=== PATIENT | female | born 1950 | race Two or more races ===

== ENCOUNTER 2021-04-12 17:02 | Observation (INO) | payer MEDICARE ==
[~2021-04-12] VITALS: Ht 180.3 cm; Wt 149.5 kg
[2021-04-12] MEDS ORDERED: fentaNYL PF VIAL 100 MCG/2 ML VIAL IVP ONE (17:15)
--- NOTE | 2021-04-12 17:33 | PHYS DOC ---
General Adult EDM: Chief Complaint: BACK PAIN OR INJURY HPI: HPI: Patient is a 71 year old female who presents with was on the toilet having a bowel movement when she decided she needed to pull up her sock but the toilet seat is wobbly and loose and as she went to slouched over to the side to grab her sock she fell forward landing on her face then off to the side. States that she got a little dizzy when she bent over to grab the sock. She states that she had not been bearing down. She is mainly complaining of mid lower back pain that is a stabbing type sensation. She rates her pain an 6 out of 10. She was given fentanyl by EMS. There is no LOC. Patient hurts more so with movement. She states that she had a hard time trying to get up off the floor. Review of Systems: Review of Systems: Constitutional: Denies fever or chills. [] Eyes: Denies change in visual acuity. [] HENT: Denies nasal congestion or sore throat. [] Respiratory: Denies cough or shortness of breath. [] Cardiovascular: Denies chest pain or edema. [] GI: Denies abdominal pain, nausea, vomiting, bloody stools or diarrhea. [] : Denies dysuria. [] Musculoskeletal: + back pain or denies joint pain. [] Integument: Denies rash. [] Neurologic: Denies headache, focal weakness or sensory changes. + Dizziness [] Endocrine: Denies polyuria or polydipsia. [] Lymphatic: Denies swollen glands. [] Psychiatric: Denies depression or anxiety. [] Heart Score: C/O Chest Pain: No HEART Score for Chest Pain: HEART Score for Chest Pain Response (Comments) Value History Slighlty/Non-Suspicious 0 ECG Nonspecific Repolarizatio 1 Age > 65 2 Risk Factors 1 or 2 Risk Factors 1 Troponin < Normal Limit 0 Total 4 Risk Factors: Risk Factors: DM, Current or recent (<one month) smoker, HTN, HLP, family hist ory of CAD, obesity. Risk Scores: Score 0 - 3: 2.5% MACE over next 6 weeks - Discharge Home Score 4 - 6: 20.3% MACE over next 6 weeks - Admit for Clinical Observation Score 7 - 10: 72.7% MACE over next 6 weeks - Early Invasive Strategies Current Medications: Current Medications Medications (Trade) Dose Ordered Sig/Leonidas Start Time Stop Time Status Last Admin Dose Admin Fentanyl Citrate (Fentanyl 2ml Vial) 50 mcg 1X ONCE 04/12/21 17:15 04/12/21 17:16 UNV Physical Exam: PE: Constitutional: Well developed, well nourished, no acute distress, non-toxic appearance. [] HENT: Normocephalic, atraumatic, bilateral external ears normal, oropharynx moist, no oral exudates, nose normal. [] Eyes: PERRLA, EOMI, conjunctiva normal, no discharge. [] Neck: Normal range of motion, no tenderness, supple, no stridor. [] Cardiovascular:Heart rate regular rhythm, no murmur [] Lungs & Thorax: Bilateral breath sounds clear to auscultation [] Abdomen: Bowel sounds normal, soft, no tenderness, no masses, no pulsatile masses. [] Skin: Warm, dry, no erythema, no rash. [] Back: Mid to lower tenderness, no CVA tenderness. [] Extremities: No tenderness, no cyanosis, no clubbing, ROM intact, no edema. [] Neurologic: Alert and oriented X 3, normal motor function, normal sensory function, no focal deficits noted. [] Psychologic: Affect normal, judgement normal, mood normal. [] EKG: EK and read by Dr. Heredia as irregular rhythm, increased QTC and QT but no STEMI with some PVCs Radiology/Procedures: Radiology/Procedures: [] Impression: [facility] [address] [place], [place] [id number] IMAGING REPORT Signed PATIENT: EVER JULIEN ACCOUNT: [id number] : 1950 LOCATION: ER AGE: 71 SEX: F EXAM STATUS: PRE ER ORD. PHYSICIAN: PRADIP MAYEN APRN REASON: dizziness, fall/ birthdate is 1950 PROCEDURE: PORTABLE CHEST 1V EXAM: AP View of the chest DATE: 04/12/2021 5:04 PM INDICATION: Reason: dizziness, fall COMPARISON: No Prior FINDINGS: The heart is not enlarged. Mediastinal and hilar contours are normal. Minimal patchy opacities left lung base likely atelectasis. No pleural effusion or pneumothorax. IMPRESSION: Minimal patchy opacities left lung base likely atelectasis. Early/developing consolidation is not entirely excluded. Electronically signed by: Nazario Ho MD (04/12/2021 5:29 PM) [facility] DICTATED and SIGNED BY: NAZARIO HO MD DATE: 04/12/21 [id number] [facility] [address] [place] [address] IMAGING REPORT Signed PATIENT: EVER JULIEN ACCOUNT: [id number] : 1950 LOCATION: ER AGE: 71 SEX: F EXAM STATUS: REG ER ORD. PHYSICIAN: PRADIP MAYEN APRN REASON: dizziness, fall [phone] PROCEDURE: CT MAXILLOFACIAL WO CONTRAST CT HEAD AND C-SPINE WO, CT MAXILLOFACIAL WITHOUT CONTRAST, CT LUMBAR SPINE WO dated 04/12/2021 5:23 PM. Comparison: None. Clinical Indication: Pain after fall. Technical factors: Contiguous 5 mm axial images of the head were obtained from the skullbase to the vertex. No contrast was administered. In addition, 3 mm axial images of the cervical spine, lumbar spine and maxillofacial bones were acquired with thin cut coronal and sagittal reconstructions. One or more of the following individualized dose reduction techniques were utilized for this examination: 1. Automated exposure control 2. Adjustment of the mA and/or kV according to patient size 3. Use of iterative reconstruction technique Findings head: Ventricles and sulci are within normal limits for age. No midline shift or mass effect. Brain parenchyma is of normal attenuation. No hemorrhage or extra-axial collection. Posterior fossa and brainstem unremarkable. Visualized paranasal sinuses and mastoid air cells are clear. No apparent calvarial abnormality. IMPRESSION HEAD: 1. No evidence of acute intracranial abnormality. Findings cervical spine: Images were acquired from the skull base to T2. Sagittal alignment is anatomic. Vertebral body heights are maintained. No prevertebral soft tissue swelling. Posterior elements are intact. Moderate endplate hypertrophic changes throughout. There is moderate multilevel disc space narrowing and uncovertebral spurring. Moderate multilevel facet arthropathy. There is resultant mild to moderate central canal stenosis at C3-C4, C4-C5, C5-C6 and C6-C7. Moderate to severe multilevel foraminal narrowing. No significant soft tissue abnormality. There are atherosclerotic disease of the carotid arteries. IMPRESSION CERVICAL SPINE: 1. No evidence of fracture or malalignment. 2. Moderate to severe multilevel spondylosis. Findings maxillofacial: No evidence of displaced facial fracture. The orbital dowling and maxillary dowling are intact. Zygomatic arches are intact. No nasal bone fracture. Mandible is intact. Mild mucosal thickening of the ethmoid air cells. The maxillary sinuses. Frontal and sphenoid sinuses are clear. Mastoid air cells are clear. No significant soft tissue abnormality. IMPRESSION MAXILLOFACIAL: 1. No evidence of displaced facial fracture. 2. Mild sinus disease. Findings lumbar spine: Grade 1 anterolisthesis of L4 on L5. Sagittal alignment is otherwise anatomic. Vertebral body heights are maintained. There is moderate disc space narrowing at L4-L5 and severe disc space narrowing of the S1. Posterior elements are intact. No evidence of fracture. Mild to moderate endplate hypertrophic changes throughout with moderate arthrosis lower lumbar apophyseal joints. Resultant moderate right foraminal stenosis at L3-L4 with moderate bilateral foraminal stenosis at L4-L5 and L5-S1. No apparent focal disc herniation. There is moderate central stenosis at L3-L4 and L4-L5 and mild central canal narrowing at L2-L3 and L5-S1. Images of the retroperitoneum show atrophic changes of the right kidney. IMPRESSION LUMBAR SPINE: 1. No evidence of fracture or malalignment. 2. Moderate lower lumbar spondylosis. Electronically signed by: Shorty Martinez MD (04/12/2021 7:05 PM) [facility] DICTATED and SIGNED BY: SHORTY MARTINEZ MD DATE: 04/12/21 [id number] Course & Med Decision Making: Course & Med Decision Making Pertinent Labs and Imaging studies reviewed. (See chart for details) Alert and oriented x4. Moving all extremities. No loss of bowel and bladder. Alert and oriented x4. Speaks in full clear sentences. No nystagmus. No facial or skull trauma. No swelling to the face. No broken teeth and she did not bite her tongue. No lacerations or abrasions. Morbidly obese. Lumbar focal bony tenderness. Painful when moving in the bed. She is moving all 4 extremities equally. Sensations intact. Neurologically intact. Skin pink warm and dry. Troponin is elevated and I have spoken to Dr Celeste states to just trend the enzymes. He states there is no need to start heparin. I did get the patient a 325 mg aspirin. I have spoken to Dr. Mcleod for admission. Chris Disclaimer: Chris Disclaimer: This electronic medical record was generated, in whole or in part, using a voice recognition dictation system. Departure Departure Impression: Primary Impression: NSTEMI (non-ST elevated myocardial infarction) Disposition: ADMITTED INPATIENT Admitting Physician: GIO Condition: STABLE PRADIP MAYEN VICE CHANCELLOR Apr 12, 2021 17:33
[2021-04-12 18:11] LABS: BASO # 0.1 x10^3/uL (0.0-0.2); BASO % 1 % (0-3); EOS # 0.2 x10^3/uL (0.0-0.7); EOS % 3 % (0-3); HEMATOCRIT 30.9 % (36.0-47.0); HEMOGLOBIN 9.9 g/dL (12.0-15.5); LYMPH # 1.9 x10^3/uL (1.0-4.8); LYMPH % 33 % (24-48); MEAN CORPUSCULAR HEMOGLOBIN 26 pg (25-35); MEAN CORPUSCULAR HGB CONC 32 g/dL (31-37); MEAN CORPUSCULAR VOLUME 82 fL (79-100); MONO # 0.4 x10^3/uL (0.0-1.1); MONO % 6 % (0-9); NEUT # 3.4 x10^3/uL (1.8-7.7); NEUT % 57 % (31-73); PLATELET COUNT 393 x10^3/uL (140-400); RED BLOOD COUNT 3.79 x10^6/uL (3.50-5.40); RED CELL DISTRIBUTION WIDTH 17.7 % (11.5-14.5); WHITE BLOOD COUNT 5.9 x10^3/uL (4.0-11.0)
[2021-04-12 18:27] LABS: CALCIUM 7.7 mg/dL (8.5-10.1); CREATININE 1.1 mg/dL (0.6-1.0); GFR 49.1; POTASSIUM 4.7 mmol/L (3.5-5.1)
[2021-04-12 18:33] LABS: ALBUMIN 2.6 g/dL (3.4-5.0); ALBUMIN/GLOBULIN RATIO 0.5 (1.0-1.7); MAGNESIUM 2.1 mg/dL (1.8-2.4); TOTAL BILIRUBIN 0.2 mg/dL (0.2-1.0); TOTAL PROTEIN 7.7 g/dL (6.4-8.2)
--- NOTE | 2021-04-12 19:07 | RAD ---
CT HEAD AND C-SPINE WO, CT MAXILLOFACIAL WITHOUT CONTRAST, CT LUMBAR SPINE WO dated 04/12/2021 5:23 P M. Comparison: None. Clinical Indication: Pain after fall. Technical factors: Contiguous 5 mm axial images of the head were obtained from the skullbase to the v ertex. No contrast was administered. In addition, 3 mm axial images of the cervical spine, lumbar spi ne and maxillofacial bones were acquired with thin cut coronal and sagittal reconstructions. One or more of the following individualized dose reduction techniques were utilized for this examinat ion: 1. Automated exposure control 2. Adjustment of the mA and/or kV according to patient size 3. Use of iterative reconstruction technique Findings head: Ventricles and sulci are within normal limits for age. No midline shift or mass effect. Brain parench yma is of normal attenuation. No hemorrhage or extra-axial collection. Posterior fossa and brainstem unremarkable. Visualized paranasal sinuses and mastoid air cells are clear. No apparent calvarial abnormality. IMPRESSION HEAD: 1. No evidence of acute intracranial abnormality. Findings cervical spine: Images were acquired from the skull base to T2. Sagittal alignment is anatomic. Vertebral body height s are maintained. No prevertebral soft tissue swelling. Posterior elements are intact. Moderate endpl ate hypertrophic changes throughout. There is moderate multilevel disc space narrowing and uncoverteb ral spurring. Moderate multilevel facet arthropathy. There is resultant mild to moderate central belkys l stenosis at C3-C4, C4-C5, C5-C6 and C6-C7. Moderate to severe multilevel foraminal narrowing. No si gnificant soft tissue abnormality. There are atherosclerotic disease of the carotid arteries. IMPRESSION CERVICAL SPINE: 1. No evidence of fracture or malalignment. 2. Moderate to severe multilevel spondylosis. Findings maxillofacial: No evidence of displaced facial fracture. The orbital dowling and maxillary dowling are intact. Zygomatic arches are intact. No nasal bone fracture. Mandible is intact. Mild mucosal thickening of the ethmoid air cells. The maxillary sinuses. Frontal and sphenoid sinuses are clear. Mastoid air cells are clear. No significant soft tissue abnormality. IMPRESSION MAXILLOFACIAL: 1. No evidence of displaced facial fracture. 2. Mild sinus disease. Findings lumbar spine: Grade 1 anterolisthesis of L4 on L5. Sagittal alignment is otherwise anatomic. Vertebral body heights are maintained. There is moderate disc space narrowing at L4-L5 and severe disc space narrowing of t he S1. Posterior elements are intact. No evidence of fracture. Mild to moderate endplate hypertrophic changes throughout with moderate arthrosis lower lumbar apophyseal joints. Resultant moderate right foraminal stenosis at L3-L4 with moderate bilateral foraminal stenosis at L4-L5 and L5-S1. No apparen t focal disc herniation. There is moderate central stenosis at L3-L4 and L4-L5 and mild central canal narrowing at L2-L3 and L5-S1. Images of the retroperitoneum show atrophic changes of the right kidney. IMPRESSION LUMBAR SPINE: 1. No evidence of fracture or malalignment. 2. Moderate lower lumbar spondylosis. Electronically signed by: Shorty Martinez MD (04/12/2021 7:05 PM) OLY
[2021-04-12] MEDS ORDERED: ACETAMINOPHEN 325 MG TABLET. PO PRN (19:15)
[2021-04-12 19:18] LABS: PROTHROMBIN TIME PATIENT 13.7 SEC (11.7-14.0)
[2021-04-12] MEDS ORDERED: ASPIRIN 325 MG TABLET PO ONE (19:30)
[2021-04-12 23:56] VITALS: BP 181/91
[2021-04-13 02:34] VITALS: BP 170/91
[2021-04-13] MEDS ORDERED: CALC500T54 PO (03:06)
[2021-04-13] MEDS ORDERED: HYDR-2145 PO (03:06)
[2021-04-13] MEDS ORDERED: CALC0.25 PO (03:06)
[2021-04-13] MEDS ORDERED: OXYB-36 PO (03:06)
[2021-04-13] MEDS ORDERED: LEVO100T5 PO (03:06)
[2021-04-13] MEDS ORDERED: METO-247 PO (03:06)
[2021-04-13] MEDS ORDERED: DULO20CA PO (03:06)
--- NOTE | 2021-04-13 06:16 | EKG ---
[facility] [address] [place] [address] Test Date: 2021-04-12 Test Time: 17:26:18 Pat Name: EVER JULIEN Department: Room: [facility] Gender: F Shoveler: : 1950 Requested By: PRADIP MAYEN Order Number: [id number] Reading MD: Bruce Roach Measurements Intervals [place] Rate: 78 P: [place]: QRS: -26 QRSD: 108 T: 52 QT: 428 QTc: 492 Interpretive Statements SINUS RHYTHM PVCS QRS(T) CONTOUR ABNORMALITY CONSISTENT WITH ANTEROSEPTAL INFARCT AGE UNDETERMINED CONSISTENT WITH OLD INFERIOR INFARCT Electronically Signed On 04-14-2021 15:59:08 PRINTING SPECIALIST by Bruce Roach
[2021-04-13 06:28] VITALS: BP 172/92
[2021-04-13 11:00] VITALS: BP 166/90
--- NOTE | 2021-04-13 12:05 | PDOC2 ---
RED BLAIR POULTRY SEXER 04/13/21 1205: CARDIAC CONSULT DATE OF CONSULT Date of Consult DATE: 04/13/21 TIME: 12:04 REASON FOR CONSULT Reason for Consult: Elevated troponin REFERRING PHYSICIAN Referring Physician: Radha Sharp SOURCE Source: Chart review, Patient HISTORY OF PRESENT ILLNESS HISTORY OF PRESENT ILLNESS This is a 71 yo female who presented with back pain secondary to fall off the toilet. Troponin level noted to be elevated, which prompted this consult. Patient reports she was sitting on stool to have a bowel movement. She reached down to pull up he sock and the raised stool went sideways and she ended up falling off of the toilet onto her knees. Fell more on her left knee. Ended up down next to the tub. Bag having knee and lower back pain, which prompted her arrival to the ED. She denies any chest pain. Reports slight dizziness when she leaned over to pull up her sock but she reports this did not cause her to fall. No LOC. Did not hit her head. She does reports a history tachyarrhythmia that prompted her arrival to the ED about 5 years ago. Tachycardia resolved with Vagal maneuvers. Did not have cardiac workup at this time. Is on metoprolol at home. Reports occasional palpitations, chest pressure. No SOA. PAST MEDICAL HISTORY Cardiovascular: HTN, Other (tacharrhythmia, palpitations ) Heme/Onc: Anemia NOS Endocrine: Hyperparathyroidism PAST SURGICAL HISTORY Past Surgical History: Other (thyroidectomy, gastric bypass ) FAMILY HISTORY Family History: Heart Disease SOCIAL HISTORY Smoke: No ALCOHOL: none Drugs: None Lives: with Family CURRENT MEDICATIONS CURRENT MEDICATIONS Current Medications Medications (Trade) Dose Ordered Sig/Leonidas Route PRN Reason Start Time Stop Time Status Last Admin Dose Admin Fentanyl Citrate (Fentanyl 2ml Vial) 50 mcg 1X ONCE IVP 04/12/21 17:15 04/12/21 17:20 DC 04/12/21 18:14 Acetaminophen (Tylenol) 650 mg PRN Q4HRS PRN PO FEVER > 100.3'F 04/12/21 19:15 04/13/21 19:14 04/13/21 06:28 Aspirin (Agustin Aspirin) 325 mg 1X ONCE PO 04/12/21 19:30 04/12/21 19:31 DC 04/12/21 23:50 ALLERGIES ALLERGIES: Coded Allergies: lisinopril (Verified Allergy, Severe, 04/13/21) Penicillins (Verified Allergy, Intermediate, 04/12/21) ROS Review of System 14 point ROS conducted with pertinent positives noted above in hPI PHYSICAL EXAM General: Alert, Oriented X3, Cooperative, No acute distress HEENT: Atraumatic Lungs: Clear to auscultation Heart: Regular rate, Other (2/6 systolic murmur ) Abdomen: Soft, Other (obese) Extremities: No edema Skin: No significant lesion Neuro: Normal speech, Sensation intact Psych/Mental Status: Mental status NL, Mood NL MUSCULOSKELETAL: Osteoarthritic changes both hands VITALS/I&O VITALS/I&O: Vital Signs Date Time Temp Pulse Resp B/P (MAP) Pulse Ox O2 Delivery O2 Flow Rate FiO2 04/13/21 08:00 Nasal Cannula 1.0 04/13/21 06:28 97.6 83 18 172/92 (118) 100 97.6 I & O 04/12/21 04/12/21 04/13/21 15:00 23:00 07:00 Intake Total 0 ml Output Total 600 ml Balance -600 ml LABS Lab: Laboratory Tests Test 04/12/21 17:50 04/12/21 21:50 04/12/21 21:59 04/13/21 02:30 White Blood Count 5.9 x10^3/uL (4.0-11.0) Red Blood Count 3.79 x10^6/uL (3.50-5.40) Hemoglobin 9.9 g/dL (12.0-15.5) L Hematocrit 30.9 % (36.0-47.0) L Mean Corpuscular Volume 82 fL (79-100) Mean Corpuscular Hemoglobin 26 pg (25-35) Mean Corpuscular Hemoglobin Concent 32 g/dL (31-37) Red Cell Distribution Width 17.7 % (11.5-14.5) H Platelet Count 393 x10^3/uL (140-400) Neutrophils (%) (Auto) 57 % (31-73) Lymphocytes (%) (Auto) 33 % (24-48) Monocytes (%) (Auto) 6 % (0-9) Eosinophils (%) (Auto) 3 % (0-3) Basophils (%) (Auto) 1 % (0-3) Neutrophils # (Auto) 3.4 x10^3/uL (1.8-7.7) Lymphocytes # (Auto) 1.9 x10^3/uL (1.0-4.8) Monocytes # (Auto) 0.4 x10^3/uL (0.0-1.1) Eosinophils # (Auto) 0.2 x10^3/uL (0.0-0.7) Basophils # (Auto) 0.1 x10^3/uL (0.0-0.2) Prothrombin Time 13.7 SEC (11.7-14.0) Prothrombin Time INR 1.1 (0.8-1.1) Activated Partial Thromboplast Time 32 SEC (24-38) Sodium Level 139 mmol/L (136-145) Potassium Level 4.7 mmol/L (3.5-5.1) Chloride Level 104 mmol/L (98-107) Carbon Dioxide Level 29 mmol/L (21-32) Anion Gap 6 (6-14) Blood Urea Nitrogen 30 mg/dL (7-20) H Creatinine 1.1 mg/dL (0.6-1.0) H Estimated GFR (Cockcroft-Gault) 49.1 BUN/Creatinine Ratio 27 (6-20) H Glucose Level 98 mg/dL (70-99) Calcium Level 7.7 mg/dL (8.5-10.1) L Magnesium Level 2.1 mg/dL (1.8-2.4) Total Bilirubin 0.2 mg/dL (0.2-1.0) Aspartate Amino Transferase (AST) 16 U/L (15-37) Alanine Aminotransferase (ALT) 20 U/L (14-59) Alkaline Phosphatase 86 U/L (46-116) Troponin I High Sensitivity 174 ng/L (4-50) H 187 ng/L (4-50) H 172 ng/L (4-50) H KO-Juw-T-Type Natriuretic Peptide 767 pg/mL (0-124) H Total Protein 7.7 g/dL (6.4-8.2) Albumin 2.6 g/dL (3.4-5.0) L Albumin/Globulin Ratio 0.5 (1.0-1.7) L SARS-CoV-2 RNA (GREG) Negative (Negative) SARS-CoV-2 Antigen (Rapid) Negative (NEGATIVE) Test 04/13/21 11:58 Glucose (Fingerstick) 89 mg/dL (70-99) Laboratory Tests 04/12/21 17:50 Laboratory Tests 04/12/21 17:50 ASSESSMENT/PLAN ASSESSMENT/PLAN 1. Mechanical fall with knee and back pain. No LOC 2. Mild troponin elevation; high sensitivity peak 187. Most probable type II, demand ischemia. CP free. EKG noted with LBBB. No previous for comparison as known ischemic evaluation 3. Accelerated hypertension; remains labile 4. Palpitations, arrhythmia; Tele noted with frequent PVC's, PAC's 5. Morbid obesity 6. S/p thyroidectomy; on replacement Recommendations Resume metoprolol for rate control Hydralazine IV PRN. Monitor BP trends ASA therapy TSH, Lipids Outpatient event monitor, echocardiogram, and ischemic evaluation with stress test as arranged Follow up in our office with Dr. Turner as arranged VASU TURNER MD 04/13/21 2653: CARDIAC CONSULT ASSESSMENT/PLAN ASSESSMENT/PLAN The patient was seen and interviewed as well as examined at the bedside. The chart was reviewed. The case was discussed. Agree with the plan of care. RED BLAIR APRN Apr 13, 2021 12:05 VASU TURNER MD Apr 13, 2021 22:53
--- NOTE | 2021-04-13 12:34 | PDOC ---
[employer] PROGRESS NOTE Date of Service DOS: DATE: 04/13/21 TIME: 12:28 Chief Complaint Chief Complaint NSTEMI Back pain/injury Dizziness History of Present Illness History of Present Illness 04/13/2021 Pt seen and examined Discussed with nurse Chart reviewed Discussed with case management Patient requesting Lortab despite fentanyl patch Appears to be in A. fib currently Discussed with pharmacy Vitals/I&O Vitals/I&O: Vital Signs Date Time Temp Pulse Resp B/P (MAP) Pulse Ox O2 Delivery O2 Flow Rate FiO2 04/13/21 08:00 Nasal Cannula 1.0 04/13/21 06:28 97.6 83 18 172/92 (118) 100 97.6 I & O 04/12/21 04/12/21 04/13/21 15:00 23:00 07:00 Intake Total 0 ml Output Total 600 ml Balance -600 ml Physical Exam General: Alert Heart: Other (Irregular S1-S2) Lungs: Clear Abdomen: Normal bowel sounds Extremities: No cyanosis Skin: No breakdown Labs Labs: Laboratory Tests Test 04/12/21 17:50 04/12/21 21:50 04/12/21 21:59 04/13/21 02:30 White Blood Count 5.9 x10^3/uL (4.0-11.0) Red Blood Count 3.79 x10^6/uL (3.50-5.40) Hemoglobin 9.9 g/dL (12.0-15.5) Hematocrit 30.9 % (36.0-47.0) Mean Corpuscular Volume 82 fL (79-100) Mean Corpuscular Hemoglobin 26 pg (25-35) Mean Corpuscular Hemoglobin Concent 32 g/dL (31-37) Red Cell Distribution Width 17.7 % (11.5-14.5) Platelet Count 393 x10^3/uL (140-400) Neutrophils (%) (Auto) 57 % (31-73) Lymphocytes (%) (Auto) 33 % (24-48) Monocytes (%) (Auto) 6 % (0-9) Eosinophils (%) (Auto) 3 % (0-3) Basophils (%) (Auto) 1 % (0-3) Neutrophils # (Auto) 3.4 x10^3/uL (1.8-7.7) Lymphocytes # (Auto) 1.9 x10^3/uL (1.0-4.8) Monocytes # (Auto) 0.4 x10^3/uL (0.0-1.1) Eosinophils # (Auto) 0.2 x10^3/uL (0.0-0.7) Basophils # (Auto) 0.1 x10^3/uL (0.0-0.2) Prothrombin Time 13.7 SEC (11.7-14.0) Prothromb Time International Ratio 1.1 (0.8-1.1) Activated Partial Thromboplast Time 32 SEC (24-38) Sodium Level 139 mmol/L (136-145) Potassium Level 4.7 mmol/L (3.5-5.1) Chloride Level 104 mmol/L (98-107) Carbon Dioxide Level 29 mmol/L (21-32) Anion Gap 6 (6-14) Blood Urea Nitrogen 30 mg/dL (7-20) Creatinine 1.1 mg/dL (0.6-1.0) Estimated GFR (Cockcroft-Gault) 49.1 BUN/Creatinine Ratio 27 (6-20) Glucose Level 98 mg/dL (70-99) Calcium Level 7.7 mg/dL (8.5-10.1) Magnesium Level 2.1 mg/dL (1.8-2.4) Total Bilirubin 0.2 mg/dL (0.2-1.0) Aspartate Amino Transf (AST/SGOT) 16 U/L (15-37) Alanine Aminotransferase (ALT/SGPT) 20 U/L (14-59) Alkaline Phosphatase 86 U/L (46-116) Troponin I High Sensitivity 174 ng/L (4-50) 187 ng/L (4-50) 172 ng/L (4-50) PN-Fkt-Z-Type Natriuretic Peptide 767 pg/mL (0-124) Total Protein 7.7 g/dL (6.4-8.2) Albumin 2.6 g/dL (3.4-5.0) Albumin/Globulin Ratio 0.5 (1.0-1.7) SARS-CoV-2 RNA (GREG) Negative (Negative) SARS-CoV-2 Antigen (Rapid) Negative (NEGATIVE) Test 04/13/21 11:58 Glucose (Fingerstick) 89 mg/dL (70-99) Assessment and Plan Assessmemt and Plan Problems Medical Problems: (1) NSTEMI (non-ST elevated myocardial infarction) Status: Acute NSTEMI Back pain/injury Dizziness Arrhythmias/A. fib Lumbar spondylosis Plan: Cardiac monitoring Serial EKGs Trend enzymes Awaiting cardiology consult ASA DVT prophylaxis Pain control w/ fentanyl patch started 04/12 at 1700 (will use Lortab for breakthrough pain) Monitor fluids Home meds Full code Encourage p.o. intake Await further cardiology input Comment Review of Relevant I have reviewed the following items mandie (where applicable) has been applied. Medications: Current Medications Medications (Trade) Dose Ordered Sig/Leonidas Route PRN Reason Start Time Stop Time Status Last Admin Dose Admin Fentanyl Citrate (Fentanyl 2ml Vial) 50 mcg 1X ONCE IVP 04/12/21 17:15 04/12/21 17:20 DC 04/12/21 18:14 Acetaminophen (Tylenol) 650 mg PRN Q4HRS PRN PO FEVER > 100.3'F 04/12/21 19:15 04/13/21 19:14 04/13/21 06:28 Aspirin (Agustin Aspirin) 325 mg 1X ONCE PO 04/12/21 19:30 04/12/21 19:31 DC 04/12/21 23:50 Justifications for Admission Other Justification CARLOS A LAUREANO III DO Apr 13, 2021 12:34
[2021-04-13] MEDS ORDERED: CYCLOBENZAPRINE 10 MG TABLET. PO PRN (13:00)
[2021-04-13 13:22] LABS: CHOLESTEROL/HDL RATIO 3.1
[2021-04-13] MEDS: CALCIUM CARBONATE 500 MG TAB.CHEW PO SCH ×3 (13:43→22:00)
[2021-04-13] MEDS: ASPIRIN CHEWABLE 81 MG TABLET. PO SCH (13:43)
[2021-04-13] MEDS: LEVOTHYROXINE 150 MCG TABLET PO SCH (13:44)
[2021-04-13] MEDS: ALLOPURINOL 100 MG TABLET. PO SCH (13:44)
[2021-04-13] MEDS: DULoxetine HCL 30 MG CAPSULE.DR PO SCH (13:44)
[2021-04-13] MEDS: HYDROcodone/APAP 5/325MG 1 TAB TABLET PO PRN ×2 (13:45→23:29)
[2021-04-13] MEDS: hydroCHLOROthiazide 25 MG TABLET PO SCH (14:29)
[2021-04-13] MEDS: OXYBUTYNIN CHLORIDE 5 MG TABLET PO SCH (14:29)
[2021-04-13] MEDS: METOPROLOL SUCC 24HR ER 100 MG TAB.ER.24H. PO SCH (14:29)
--- NOTE | 2021-04-13 14:56 | NUR ---
SS following for discharge planning. SS reviewed pt chart and discussed with pt RN. Pt is from home and is currently requiring oxygen at two liters nasal canula. COVID19 negative. Cardiology following. SS will continue to follow for discharge planning.
[2021-04-13 15:00] VITALS: BP 135/76
[2021-04-13] MEDS ORDERED: hydrALAZINE 20 MG/ML VIAL. IVP PRN (16:30)
[2021-04-13 19:00] VITALS: BP 129/80
[2021-04-13] MEDS: NYSTATIN TOPICAL POWDER 15GM BOTTLE. TP SCH (20:40)
[2021-04-13 22:53] VITALS: BP 199/86
[2021-04-13 23:09] LABS: BILIRUBIN,URINE NEGATIVE (NEG); CLARITY,URINE CLEAR; COLOR,URINE YELLOW; NITRITE,URINE POSITIVE (NEG); PH,URINE 5.5 (<5.0-8.0); PROTEIN,URINE NEGATIVE (NEG-TRACE); UROBILINOGEN,URINE 0.2 mg/dL (0.2 mg/dL)
[2021-04-13 23:26] LABS: BACTERIA,URINE MANY /HPF (0-FEW); RBC,URINE 0 /HPF (0-2)
[2021-04-14 02:06] VITALS: BP 202/85
[2021-04-14] MEDS: LEVOTHYROXINE 150 MCG TABLET PO SCH (05:30)
[2021-04-14 07:06] VITALS: BP 135/76
[2021-04-14] MEDS: NYSTATIN TOPICAL POWDER 15GM BOTTLE. TP SCH (09:06)
[2021-04-14] MEDS: ALLOPURINOL 100 MG TABLET. PO SCH (09:07)
[2021-04-14] MEDS: CALCIUM CARBONATE 500 MG TAB.CHEW PO SCH ×2 (09:07→13:20)
[2021-04-14] MEDS: OXYBUTYNIN CHLORIDE 5 MG TABLET PO SCH (09:08)
[2021-04-14] MEDS: DULoxetine HCL 30 MG CAPSULE.DR PO SCH (09:08)
[2021-04-14] MEDS: hydroCHLOROthiazide 25 MG TABLET PO SCH (09:08)
[2021-04-14] MEDS: METOPROLOL SUCC 24HR ER 100 MG TAB.ER.24H. PO SCH (09:08)
[2021-04-14] MEDS: ASPIRIN CHEWABLE 81 MG TABLET. PO SCH (09:08)
[2021-04-14] MEDS ORDERED: DULO30CA2 PO (09:27)
[2021-04-14] MEDS ORDERED: LEVO150T5 PO (09:27)
--- NOTE | 2021-04-14 09:45 | DS ---
DATE OF DISCHARGE: 04/14/2021 ADMISSION DIAGNOSES: Elevated troponin, back pain, dizziness, overweight, fall, accelerated hypertension, palpitations. DISCHARGE DIAGNOSES: Resolving elevated troponin, suspect demand ischemia; obesity; hypothyroidism; history of depression; anxiety; incontinence; resolving fall; resolving knee pain; resolving back pain; accelerated hypertension; palpitations; history of thyroidectomy. CONSULTS: Cardiology. PROCEDURES: None. HOSPITAL COURSE: The patient is a pleasant, middle-aged female who presented with some chest discomfort, was noted to have an elevated troponin of 187. Cardiology felt like this was demand ischemia and would like to do an outpatient ischemic workup. I saw the patient this morning, she is doing well. We plan to discharge. DISPOSITION: Home. ACTIVITY: As tolerated. DIET: Low sodium. DISCHARGE MEDICATIONS: Please see the MRAD. TOTAL TIME: [address]: Aravind TID: [id number]
[2021-04-14 10:01] VITALS: BP 123/69
--- NOTE | 2021-04-14 13:19 | PDOC ---
[employer] PROGRESS NOTE Date of Service DOS: DATE: 04/14/21 TIME: 13:18 Chief Complaint Chief Complaint NSTEMI Back pain/injury Dizziness History of Present Illness History of Present Illness 04/14/2021 Patient seen and examined Discussed with her Chart reviewed Plan is to discharge later today 04/13/2021 Pt seen and examined Discussed with nurse Chart reviewed Discussed with case management Patient requesting Lortab despite fentanyl patch Appears to be in A. fib currently Discussed with pharmacy Vitals/I&O Vitals/I&O: Vital Signs Date Time Temp Pulse Resp B/P (MAP) Pulse Ox O2 Delivery O2 Flow Rate FiO2 04/14/21 10:01 98.3 92 16 123/69 (87) 97 Room Air 98.3 04/14/21 08:00 1.0 I & O 04/13/21 04/13/21 04/14/21 15:00 23:00 07:00 Intake Total 180 ml 480 ml Output Total 400 ml 450 ml 350 ml Balance -220 ml 30 ml -350 ml Physical Exam General: Alert, Oriented X3, Cooperative, No acute distress Heart: Regular rate, Other (2/6 systolic murmur ) Lungs: Clear Abdomen: Soft, Other (obese) Extremities: No edema Skin: No significant lesion Labs Labs: Laboratory Tests Test 04/13/21 17:31 04/13/21 20:57 04/13/21 23:00 Glucose (Fingerstick) 135 mg/dL (70-99) 87 mg/dL (70-99) Urine Collection Type Unknown Urine Color Yellow Urine Clarity Clear Urine pH 5.5 (<5.0-8.0) Urine Specific [place] 1.020 (1.000-1.030) Urine Protein Negative mg/dL (NEG-TRACE) Urine Glucose (UA) Negative mg/dL (NEG) Urine Ketones (Stick) Negative mg/dL (NEG) Urine Blood Negative (NEG) Urine Nitrite Positive (NEG) Urine Bilirubin Negative (NEG) Urine Urobilinogen Dipstick 0.2 mg/dL (0.2 mg/dL) Urine Leukocyte Esterase Negative (NEG) Urine RBC 0 /HPF (0-2) Urine WBC 5-10 /HPF (0-4) Urine Squamous Epithelial Cells Few /LPF Urine Bacteria Many /HPF (0-FEW) Urine Mucus Slight /LPF Assessment and Plan Assessmemt and Plan Problems Medical Problems: (1) NSTEMI (non-ST elevated myocardial infarction) Status: Acute Discharge see dictation Comment Review of Relevant I have reviewed the following items mandie (where applicable) has been applied. Medications: Current Medications Medications (Trade) Dose Ordered Sig/Leonidas Route PRN Reason Start Time Stop Time Status Last Admin Dose Admin Calcium Carbonate/ Glycine (Tums) 500 mg BID PO 04/13/21 14:00 04/13/21 20:58 DC 04/13/21 20:40 Duloxetine HCl (Cymbalta) 60 mg DAILY PO 04/13/21 14:00 04/14/21 09:08 Levothyroxine Sodium (Synthroid) 150 mcg DAILY06 PO 04/13/21 14:00 04/14/21 05:30 Aspirin (Aspirin Chewable) 81 mg DAILYWBKFT PO 04/13/21 14:00 04/14/21 09:08 Allopurinol (Zyloprim) 100 mg DAILY PO 04/13/21 14:00 04/14/21 09:07 Nystatin (Nystop) 1 billy BID TP 04/13/21 21:00 04/14/21 09:06 Oxybutynin Chloride (Ditropan) 5 mg DAILY PO 04/13/21 14:30 04/14/21 09:08 Hydrochlorothiazide (Hydrodiuril) 25 mg DAILY PO 04/13/21 14:30 04/14/21 09:08 Metoprolol Succinate (Toprol Xl) 100 mg DAILY PO 04/13/21 14:30 04/14/21 09:08 Hydralazine HCl (Apresoline Inj) 10 mg PRN Q4HRS PRN IVP ELEVATED BP, SEE COMMENTS 04/13/21 16:30 04/14/21 02:17 Calcium Carbonate/ Glycine (Tums) 500 mg QID PO 04/13/21 22:00 04/14/21 09:07 Justifications for Admission Other Justification CARLOS A LAUREANO III DO Apr 14, 2021 13:19
--- NOTE | 2021-04-14 17:13 | PDOC ---
CARDIOLOGY PROGRESS NOTE SUBJECTIVE: No acute events overnight. The patient denies any current chest pain or exertional dyspnea. She has been mostly sedentary throughout her stay here. OBJECTIVE: Vital Signs/I&O: Vital Signs Date Time Temp Pulse Resp B/P (MAP) Pulse Ox O2 Delivery O2 Flow Rate FiO2 04/14/21 14:40 98.2 100 96 Room Air 98.2 04/14/21 10:01 16 04/14/21 08:00 1.0 I & O 04/13/21 04/13/21 04/14/21 15:00 23:00 07:00 Intake Total 180 ml 480 ml Output Total 400 ml 450 ml 350 ml Balance -220 ml 30 ml -350 ml Objective: On examination she is not in any distress Normal heart tones 2+ radial pulses She has bilateral lymphedema She is morbidly obese CURRENT MEDICATIONS: Cardiovascular occasions include hydrochlorothiazide and metoprolol DIAGNOSTIC TESTING: Telemetry did not reveal any significant pathology ASSESSMENT: 1. Mechanical fall with knee and back pain. No LOC 2. Mild troponin elevation; high sensitivity peak 187. Most probable type II, demand ischemia. CP free. EKG noted with LBBB. No previous for comparison as known ischemic evaluation 3. Accelerated hypertension; remains labile 4. Palpitations, arrhythmia; Tele noted with frequent PVC's, PAC's 5. Morbid obesity 6. S/p thyroidectomy; on replacement PLAN: 1. I discussed with the patient and her sister at bedside the plans for outpatient event monitoring, echocardiogram and myocardial perfusion studies. They are in agreement. She will follow-up in the office after the above testing is been completed. Thank you for the consultation. Supportive care. Justicifation of Admission Dx: Justifications for Admission: Justification of Admission Dx: N/A VASU LAM MD Apr 14, 2021 17:13
--- NOTE | 2021-04-17 12:28 | HP ---
DATE OF SERVICE: 04/17/2021 ADMIT DATE: 04/12/2021 LATE HISTORY AND PHYSICAL CHIEF COMPLAINT: Back pain. HISTORY OF PRESENT ILLNESS: The patient is a pleasant 71-year-old female who presented to the ER with back pain. She was using the toilet and when she stood up, she fell. She complains of back pain. While in the ER, we noticed that her troponin is also high at 174. I discussed the case with ER physician. We are going to admit the patient and consult Cardiology. PAST MEDICAL HISTORY: Hypertension, obesity, history of thyroidectomy. ALLERGIES: PENICILLIN AND LISINOPRIL. FAMILY HISTORY: Hypertension. SOCIAL HISTORY: She does not drink, smoke or take drugs. MEDICATIONS: Reviewed. Please refer to the MRAD. REVIEW OF SYSTEMS: GENERAL: No history of weight change, weakness or fevers. SKIN: No bruising, hair changes or rashes. EYES: No blurred, double or loss of vision. NOSE AND THROAT: No history of nosebleeds, hoarseness or sore throat. HEART: No history of palpitations, chest pain or shortness of breath on exertion. LUNGS: Denies cough, hemoptysis, wheezing or shortness of breath. GASTROINTESTINAL: Denies changes in appetite, nausea, vomiting, diarrhea or constipation. GENITOURINARY: No history of frequency, urgency, hesitancy or nocturia. NEUROLOGIC: Denies history of numbness, tingling, tremor or weakness. PSYCHIATRIC: No history of panic, anxiety or depression. ENDOCRINE: No history of heat or cold intolerance, polyuria or polydipsia. EXTREMITIES: Denies muscle weakness, joint pain, pain on walking or stiffness. PHYSICAL EXAMINATION: VITALS: Within normal limits and are stable. GENERAL: No apparent distress. Alert and oriented. HEENT: Normal cephalic atraumatic, external auditory canals are patent. EYES: Extraocular muscles are intact, pupils are equally round and reactive to light and accommodation. MUSCULOSKELETAL: Well developed, well nourished, good range of motion. ENDOCRINE: No thyromegaly was palpated, LYMPHATICS: No cervical chain or axillary nodes were noted. HEMATOPOIETIC: No bruising. NECK: Supple, no JVD, no thyromegaly was noted. LUNGS: Clear to auscultation in all lung griffith without rhonchi or wheezing. HEART: RRR, S1, S2 present. Peripheral pulses intact, no obvious murmurs were noted. ABDOMEN: Soft, nontender. Positive bowel sounds no organomegaly, normal bowel sounds. EXTREMITIES: Without any cyanosis, clubbing, or edema. Pedal pulses intact, Homans sign is negative. NEUROLOGIC: Normal speech, normal tone. A and O x 3, moves all extremities, no obvious focal deficits. PSYCHIATRIC: Normal affect, normal mood. Stable. SKIN: No ulcerations or rashes, good skin turgor, no jaundice. VASCULAR: Good capillary refill, neurovascular bundle appears to be intact. ASSESSMENT AND PLAN: Elevated troponin in an elderly female who fell and has some back pain. The patient will be admitted. We will do serial cardiac enzymes, serial EKGs. Consult Cardiology. Cardiac monitoring. P.r.n. pain meds, home meds, DVT prophylaxis, full code. AMBER/ALYCIA DR: Aravind TID: [id number]
== END 2021-04-14 16:30 | disposition home or self-care (01) ==
LOC: ER 17:02 → INTOOBSV 21:30 → 6 SOUTH 21:30
PROVIDERS: ADMIT Student in an Organized Health Care Education/Training Program; ATTEND Student in an Organized Health Care Education/Training Program
DX: I21.4 Non-ST elevation (NSTEMI) myocardial infarction (principal); Z20.822 Contact with and (suspected) exposure to COVID-19; I10 Essential (primary) hypertension; E66.01 Morbid (severe) obesity due to excess calories; E89.0 Postprocedural hypothyroidism; I44.7 Left bundle-branch block, unspecified; I49.9 Cardiac arrhythmia, unspecified; M47.816 Spondylosis without myelopathy or radiculopathy, lumbar region; I48.91 Unspecified atrial fibrillation; D64.9 Anemia, unspecified; E21.3 Hyperparathyroidism, unspecified; R00.2 Palpitations; R77.8 Other specified abnormalities of plasma proteins; Z79.899 Other long term (current) drug therapy; Z98.890 Other specified postprocedural states; Z98.84 Bariatric surgery status; Z68.42 Body mass index [BMI] 45.0-49.9, adult; Z79.82 Long term (current) use of aspirin; W18.11XA Fall from or off toilet without subsequent striking against object, initial encounter; Y92.89 Other specified places as the place of occurrence of the external cause; Y93.89 Activity, other specified; Y99.8 Other external cause status
CPT/HCPCS: 36415; 70450; 70486; 71045; 72125; 72131; 80053; 80061; 81001; 82962; 83735; 83880; 84443; 84484; 85025; 85610; 85730; 87086; 87426; 93005; 96374; 96375; 99285; G0378; J0360; J3010; U0003; U0005; G0379

== ENCOUNTER 2021-06-13 10:02 | Outpatient (CLI) | payer MEDICARE ==
[2021-06-13] VITALS (11 sets, daily range): BP systolic 118–158; BP diastolic 67–83
[~2021-06-13] VITALS: Ht 180.3 cm; Wt 145.5 kg
[~2021-06-13 10:02] MED LIST: CALC0.25 PO; CALC500T54 PO; DULO20CA PO; DULO30CA2 PO; HYDR-2145 PO; LEVO100T5 PO; LEVO150T5 PO; METO-247 PO; OXYB-36 PO
[2021-06-13] MEDS ORDERED: LIDOCAINE 1% Multi-Dose 20 ML VIAL. ONE (10:36)
[2021-06-13] MEDS ORDERED: HEPARIN for ARTERIAL LINE 1,500 ML ONE (10:36)
[2021-06-13] MEDS ORDERED: IODIXANOL 320 MG/ML 100 ML VIAL. ONE (10:36)
[2021-06-13] MEDS ORDERED: ASPI-886 PO (10:49)
[2021-06-13] MEDS ORDERED: CYCL10TA19 PO (10:49)
[2021-06-13] MEDS ORDERED: HYDR-2761 PO (10:49)
[2021-06-13] MEDS ORDERED: ALLO100T PO (10:49)
[2021-06-13] MEDS ORDERED: CALC250T PO (10:49)
[2021-06-13] MEDS ORDERED: NYST1POW5 MC (10:49)
[2021-06-13 10:50] LABS: PROTHROMBIN TIME PATIENT 13.1 SEC (11.7-14.0)
[2021-06-13 10:51] LABS: HEMATOCRIT 32.1 % (36.0-47.0); RED BLOOD COUNT 3.94 x10^6/uL (3.50-5.40); RED CELL DISTRIBUTION WIDTH 17.6 % (11.5-14.5)
[2021-06-13 11:05] LABS: CALCIUM 7.4 mg/dL (8.5-10.1); GFR 66.3; POTASSIUM 4.1 mmol/L (3.5-5.1)
[2021-06-13] MEDS ORDERED: fentaNYL PF VIAL 100 MCG/2 ML VIAL ONE (11:15)
[2021-06-13] MEDS ORDERED: HEPARIN for IV BOLUS 10,000 UNIT/10 ML VIAL. ONE (11:16)
[2021-06-13] MEDS ORDERED: NITROGLYCERIN 200 MCG/2 ML SYRINGE FOR CATH/VASC LAB. ONE (11:16)
[2021-06-13] MEDS ORDERED: VERAPAMIL 5 MG/2 ML VIAL. ONE (11:16)
[2021-06-13] MEDS ORDERED: MIDAZOLAM HCL/PF 2 MG/2 ML VIAL. ONE (11:16)
[2021-06-13] MEDS ORDERED: NITROGLYCERIN 200 MCG/2 ML SYRINGE FOR CATH/VASC LAB. IART ONE (12:00)
[2021-06-13] MEDS ORDERED: IODIXANOL 320 MG/ML 100 ML VIAL. IART ONE (12:00)
[2021-06-13] MEDS ORDERED: VERAPAMIL 5 MG/2 ML VIAL. IART ONE (12:00)
[2021-06-13] MEDS ORDERED: fentaNYL PF VIAL 100 MCG/2 ML VIAL IV ONE (12:00)
[2021-06-13] MEDS ORDERED: HEPARIN for IV BOLUS 10,000 UNIT/10 ML VIAL. IART ONE (12:00)
[2021-06-13] MEDS ORDERED: MIDAZOLAM HCL/PF 5 MG/5 ML VIAL. IV ONE (12:00)
[2021-06-13] MEDS ORDERED: LIDOCAINE 1% Multi-Dose 20 ML VIAL. INJ ONE (12:00)
[2021-06-13] MEDS ORDERED: MIDAZOLAM HCL/PF 2 MG/2 ML VIAL. IV ONE (12:15)
[2021-06-13] MEDS ORDERED: CONTRAST GIVEN. MC PRN (12:15)
--- NOTE | 2021-06-13 17:18 | CARD ---
MR#: [id number] Date of Study: 06/13/2021 Ordering Physician: VASU LAM, Referring Physician: VASU LAM, Tech: Olya Menezes APPROVED REPORT Technologist: Olya Menezes Nurse: Darling Harvey RN Procedure(s) performed: fl time: 2.5 min dose: 55 gycm2 contrast: 54 ml moderate sedation: 48 MIN RHC, LHC, Coronary angiography INDICATION The indication(s) include : positive stress test. [facility] Clinical Frailty Scale [facility] Clinical Frailty Scale: Moderately Frail Heart Failure Heart Failure: Yes If Yes, Newly Diagnosed: No If Yes, HF Type: Diastolic If Yes, NYHA Class: Class III CASE TECHNIQUE IV conscious sedation was used throughout procedure with appropriate monitoring and was performed in the presence of a registered nurse who was an independent trained observer other than the physician p erforming the procedure. During this case, Fluoroscopy and low osmolar contrast were used for imaging . Specimen(s) Removed: N/A Estimated Blood loss: 15 cc's. PROCEDURE NARRATIVE The patient was brought electively to the cardiac catheterization lab. A timeout was performed confi rming the patient's name, date of , procedure, and site of procedure. All necessary personnel w ere wearing the appropriate protective equipment and radiation monitor devices. After explaining the risks and benefits of the procedure and alternatives, informed consent was obtained. (See nursing no elisha for medications administered). The right wrist/neck was sterilely prepped and draped in the usua l fashion. The right wrist/neck was infiltrated with 20 mL of 2% lidocaine for subcutaneous anesthes ia. A 6 Fsheath was inserted into the right radial artery without difficulty via the modified seldin bonita technique with an 18G needle and a J-tipped guidewire. Next, an 5Fr sheath was inserted in the ri ght IJ. A PA catheter was then advanced through the right heart chambers, pressures and saturations were obta ined. Subsequently, right and left coronary angiography was performed using standard TIG diagnostic c atheters. Left ventricular end diastolic pressure was obtained with a TIG catheter and pullback was performed. HEMODYNAMICS: LVEDP 12 mm Hg AO: 150/80 *No gradient on LV to aortic pullback. RA 0 mmHg RV 39/0/4 PA 38/4/23 Wedge 2 mmHg PA saturation 69% FA saturation 95% Christina cardiac output 6.5, cardiac index 2.5 CORONARY ANGIOGRAPHY: Left main is a short large-caliber vessel with normal angiographic appearance. There is near separat e ostia of the LAD and circumflex LAD is a large-caliber vessel with mild luminal irregularities Left circumflex is a large-caliber vessel with mild luminal irregularities RCA is a moderate to large caliber vessel with mild luminal irregularities Conclusion 1. Normal biventricular filling pressures 2. No evidence of pulmonary pretension 3. Normal cardiac output 4. No significant coronary artery disease Recommendations Weight Loss Reduction Program Signed by : Vasu Lam, Electronically Approved : 06/13/2021 17:17:38
== END 2021-06-13 14:40 | disposition home or self-care (01) ==
LOC: CCL 10:02
PROVIDERS: ATTEND Internal Medicine Cardiovascular Disease
DX: R06.09 Other forms of dyspnea (principal); I10 Essential (primary) hypertension; E66.9 Obesity, unspecified; F32.9 Major depressive disorder, single episode, unspecified; Z79.82 Long term (current) use of aspirin; Z79.899 Other long term (current) drug therapy; Z98.890 Other specified postprocedural states; Z88.0 Allergy status to penicillin; Z88.8 Allergy status to other drugs, medicaments and biological substances
CPT/HCPCS: 36415; 76937; 80048; 85027; 85610; 93460; 99152; 99153; C1769; C1773; C1894; J1644; J2250; J3010; J3490; Q9967